=== PATIENT | male | born 1935 | race Caucasian/White ===

== ENCOUNTER 2017-06-15 15:14 | Inpatient (IN) | payer OTHER ==
[~2017-06-15] VITALS: Ht 167.6 cm; Wt 88.9 kg
[~2017-06-15 15:14] MED LIST: ADVIN25050 INH; ALBUAER2 INH; ATOR-24 PO; CYAN10005 PO; DSWCR15 TOP; FINA5TAB PO; GLC500 PO; GLYB5TAB8 PO; LISI-725 PO; MNC50 PO; MULT-506 PO
[2017-06-15 16:47] VITALS: BP 183/93; PULSE 51; TEMP 36.4; O2SAT 98; Ht 167.6 cm; Wt 88.9 kg
--- NOTE | 2017-06-15 17:00 | NUR ---
pt arrived via ems from [facility]. applied heart monitor vss. pt currently with no complaints. admission assessment completed. heart monitor applied. code word, fall risk established. md notified of admission, med rec completed. oriented to room call garay fall risk . will await orders.
[2017-06-15] MEDS ORDERED: ATOR-26 PO (17:40)
[2017-06-15] MEDS ORDERED: LEVO75TA5 PO (17:40)
[2017-06-15] MEDS ORDERED: ASPI81TA28 PO (17:40)
[2017-06-15] MEDS ORDERED: LISI10TA PO (17:40)
[2017-06-15] MEDS ORDERED: DSWCR TOP (17:40)
[2017-06-15] MEDS ORDERED: TRMCR515 TOP (17:40)
[2017-06-15] MEDS ORDERED: FINA5TAB PO (17:40)
[2017-06-15] MEDS ORDERED: TAMS0.4C38 PO (17:40)
[2017-06-15] MEDS ORDERED: CHOL2000 PO (17:40)
[2017-06-15] MEDS ORDERED: CYAN10005 PO (17:40)
[2017-06-15] MEDS ORDERED: METF-384 PO (17:40)
[2017-06-15] MEDS ORDERED: NITROGLYCERIN 0.4 MG SL PER TAB CHARGE SL PRN (17:45)
[2017-06-15] MEDS ORDERED: GLUCAGON FOR INJ 1 MG VIAL SQ PRN (19:15)
[2017-06-15] MEDS ORDERED: DEXTROSE 50% 50 ML SYR IV PRN (19:15)
[2017-06-15] MEDS ORDERED: GLUCOSE 10 TABS/TUBE PO PRN (19:15)
[2017-06-15] MEDS ORDERED: GLUCOSE 40% GEL 15 GM TUBE PO PRN (19:15)
[2017-06-15 19:16] LABS: HEMATOCRIT 33.8 % (42-52); HEMOGLOBIN 11.2 g/dL (14.0-18.0); MEAN CELL VOLUME 92.9 fL (80-100); MEAN CORPUSCULAR HEMOGLOBIN 30.8 pg (25-34); MEAN CORPUSCULAR HGB CONC 33.1 g/dl (32-36); MEAN PLATELET VOLUME 10.9 fL (7.4-10.4); PLATELET COUNT 229 K/uL (130-400); RED CELL DISTRIBUTION WIDTH SD 51.1 fL (36.4-46.3)
[2017-06-15 19:33] LABS: BLOOD UREA NITROGEN 23 mg/dl (7-18); CARBON DIOXIDE 24 mmol/L (21-32); GLUCOSE 106 mg/dl (70-99); POTASSIUM 4.3 mmol/L (3.5-5.1); SODIUM 139 mmol/L (136-145)
[2017-06-15 19:38] LABS: CKMB 2.4 ng/ml (0.5-3.6)
--- NOTE | 2017-06-15 19:40 | NUR ---
spoke with patient regarding code status - pt does not want cpr or intubation. patient is agreeable to being defibrillated, and externally paced.
--- NOTE | 2017-06-15 19:48 | NUR ---
pt reassessed. heart rate 30's-40's asymptomatic. pacer pads in place. call garay in reach will cont to monitor.
[2017-06-15 19:56] VITALS: BP 154/78; PULSE 49; TEMP 36.9; O2SAT 91
[2017-06-15] MEDS: INSULIN ASPART 100 UNITS/ML 3 ML PEN SC SCH (20:49)
[2017-06-15] MEDS ORDERED: MAGNESIUM SULFATE 1GM / D5W 1 GM in PREMIXED IN D5W 100 ML IV ONE (21:45)
--- NOTE | 2017-06-15 21:46 | History and Physical ---
History & Physical Date & Time of Service: Jun 15, 2017 at 19:07 Chief Complaint: Complete Heart Block - Pacemaker Placement [place] Primary Care Physician: No Doctor, Assigned History of Present Illness Source: patient, clinic records, hospital records Pt is 81 y/o M with PMH DM II, HTN, dyslipidemia, melanoma with yelena to lymph nodes to right upper chest s/p chemo in remission past 6 years presented for direct admission from [facility] ER with complete heart block. Planned pacemaker placement tomorrow by Dr Ramirez. Pt reports past 2-3 days with aching/dull anterior chest pain with associated SOB, worse with walking. Denies any current CP or SOB. Reports hx edema feet bilaterally at end of day and resolves by morning for "awhile", denies any increased LE edema. In [facility] EKG: rate 45 with complete heart block, RBBB. Pt given 324mg ASA. CXR: mild increased interstitial markings lung arias without consolidation or effusion. WBC: 8, ProBNP: 4457, TSH: 2.77. Negative influenza swab. Denies fever/chills, diaphoresis, N/V/D/C, DORMAN, dizziness, syncope, vision changes, neck pain, orthopnea, palpitations, hemoptysis, cough, sore throat, choking, otalgia, rhinorrhea, abdominal pain, paresthesias, extremity weakness, rashes, urinary symptoms. Past Medical/Surgical History Medical Problems: (1) BPH (benign prostatic hyperplasia) Status: Chronic (2) DM type 2 (diabetes mellitus, type 2) Status: Chronic (3) HTN (hypertension) Status: Chronic (4) Hyperlipemia Status: Chronic (5) Hypothyroidism Status: Chronic (6) Melanoma Permanent Comment: hx melanoma with yelena to lymph nodes right upper chest. chemo. Dr Hernandez. In remission past 6 years Status: Chronic (7) Pernicious anemia Status: Chronic (8) Rosacea Status: Chronic Surgical Problems: (1) History of arthroplasty of left knee Status: Resolved (2) History of lymph node dissection of right axilla Permanent Comment: 2009 - right axillary node dissection- Dr De Jesus Status: Resolved (3) Hx of laminectomy Permanent Comment: 2007 - laminotomy decompression nerve root lumbar [place] [facility] [place]: Resolved (4) Hx of rotator cuff surgery Permanent Comment: 1998- Left shoulder Status: Resolved Family History Diabetes mellitus Hypertension Social History Smoking Status: Former Smoker (quit 1957, smoked 2ppd x 5 years) Smokeless Tobacco Use: No Alcohol Use: none (previous user, Quit 1981) Drug Use: none Immunizations History of Influenza Vaccine: Yes Influenza Vaccine Date: Mar 21, 2012 History of Tetanus Vaccine?: Yes History of Pneumococcal: Yes Pneumococcal Date: Mar 21, 2012 History of Hepatitis B Vaccine: No Allergies Coded Allergies: Iodinated Contrast Media (Verified Adverse Reaction, Intermediate, SHAKING /HYPOTHERMIA/HYPOTENSION, 11/01/09) Aspirin (Verified Adverse Reaction, Mild, TINNITUS, 01/02/10) Bupivacaine (Verified Adverse Reaction, Unknown, ?EPIDURAL-SEIZURE, ) Fentanyl (Verified Adverse Reaction, Unknown, ?EPIDURAL-SEIZURE, 01/02/10) Home Medications Scheduled Aspirin (Aspirin Ec), 81 MG PO DAILY Atorvastatin (Lipitor), 80 MG PO DAILY Cholecalciferol (Vitamin D3), 1 CAP PO DAILY Cyanocobalamin (Vitamin B-12), 1,000 MCG PO DAILY Finasteride (Proscar), 1 TAB PO DAILY Levothyroxine Sodium (Levothyroxine Sodium), 1 TAB PO DAILY Metformin Hcl (Glucophage), 1,000 MG PO BID Tamsulosin Hcl (Flomax), 1 CAP PO DAILY Triamcinolone Acet (Triamcinolone Acetonide), 1 APPLN TOP BID Scheduled PRN Desonide 0.05% (Desowen 0.05%), 1 APPLN TOP BID PRN for rash Miscellaneous Medications Lisinopril (Prinivil), 10 MG PO Review of Systems Constitutional: + problem reported, No fever, No chills, No sweats, No weight loss Eyes: No worsening of vision, No eye pain, No redness, No diplopia ENT: No unusual epistaxis, No nasal symptoms, No sore throat, No trouble swallowing Respiratory: + shortness of breath (see HPI), No cough, No sputum, No wheezing Cardiovascular: + problem reported (see HPI), No orthopnea, No PND Abdomen: No pain, No nausea, No vomiting, No diarrhea, No constipation Musculoskeletal: No joint pain, No muscle pain Genitourinary - Male: No hematuria, No dysuria, No urinary frequency, No urinary urgency Neurologic: No weakness, No numbness/tingling, No vertigo Psychiatric: No depression symptoms, No anxiety Endocrine: No excessive thirst, No excessive urination Hematologic / Lymphatic: No abnormal bleeding/bruising, No clotting problems Integumentary: No itch Physical Exam Vital Signs Date Time Temp Pulse Resp B/P (MAP) Pulse Ox O2 Delivery O2 Flow Rate FiO2 06/15/17 16:47 36.4 51 16 183/93 98 Room Air General Appearance: WD/WN, no apparent distress Head: normocephalic, atraumatic Eyes: normal inspection, PERRL, EOMI, sclerae normal ENT: hearing grossly normal, pharynx normal, + pertinent finding (moist mucous membranes) Neck: supple, no JVD, trachea midline Respiratory/Chest: chest non-tender, no respiratory distress, no accessory muscle use, + pertinent finding (mild rales noted bilateral bases) Cardiovascular: normal peripheral pulses, + bradycardia (+murmur) Abdomen/GI: normal bowel sounds, non tender, soft Extremities/Musculoskelatal: no calf tenderness, normal capillary refill, no pedal edema, normal range of motion, non-tender Neurologic/Psych: alert, normal mood/affect, oriented x 3 Skin: normal color, warm/dry Diagnostics Laboratory Results Medical Problems: (1) BPH (benign prostatic hyperplasia) Status: Chronic (2) DM type 2 (diabetes mellitus, type 2) Status: Chronic (3) HTN (hypertension) Status: Chronic (4) Hyperlipemia Status: Chronic (5) Hypothyroidism Status: Chronic (6) Melanoma Permanent Comment: hx melanoma with yelena to lymph nodes right upper chest. chemo. Dr Hernandez. In remission past 6 years Status: Chronic (7) Pernicious anemia Status: Chronic (8) Rosacea Status: Chronic Surgical Problems: (1) History of arthroplasty of left knee Status: Resolved (2) History of lymph node dissection of right axilla Permanent Comment: 2009 - right axillary node dissection- Dr De Jesus Status: Resolved (3) Hx of laminectomy Permanent Comment: 2007 - laminotomy decompression nerve root lumbar [place] [facility] [place]: Resolved (4) Hx of rotator cuff surgery Permanent Comment: 1998- Left shoulder Status: Resolved EKG EKG: ro, rate 49, heart block, RBBB Impression Assessment and Plan COMPLETE HEART BLOCK/CP/SOB Pt with hx CP, SOB for 2 days. No current CP/SOB. EKG: bradycardia rate 49, complete heart block. Initial troponin negative. CXR done at [facility] no infiltrate or consolidation. -trend cardiac enzymes -cardiology & EP consulted, pt planned for pacemaker placement tomorrow -NPO after midnight -echo -external bedside pacer pads to be in place -repeat EKG in am -repeat cbc, prp in am HTN initially hypertensive, however now stable -continue to monitor -continue lisinopril HYPOMAGNESIA Today Ma.5 -replace -repeat magnesium lab in am DM II A1C on 04/23/17 was 6.6 -hold metformin -NovoLog sliding scale per protocol DYSLIPIDEMIA Lipids on 04/23/17 Total: 117, HDL: 39, LDL: 53, Triglycerides: 123 -continue atorvastatin HYPOTHYROIDISM TSH: 2.77 today at [facility] -continue levothyroxine BPH -continue flomax ANEMIA hx pernicious anemia. Hgb: 11.2, baseline: 12.3. No active bleeding -repeat cbc in am DVT PROPHYLAXIS -SCDs DISPOSITION -admit tele -No compressions, No mechanical ventilation, Yes to cardioversion as per discussion with pt -Follows with Dr Bateman for routine care Pt was seen with Dr Bentley. See addendum Attending Addendum: The patient was seen and examined Admitted with Exertional SOB and CP and noted to have CHB with rate ~upper 40s O/H No acute distress Chest-decreased breath sound bilaterally Haert-regular Abdomen-benign Extremities-trace edema bilaterally Labs and imaging studies were reviewed Agree with the assessment and plan. Dr Nigel bentley Level of Care Telemetry Advanced Directives Existing Living Will: No Existing Power of [employer] Worker: No VTE Prophylaxis VTE Risk Assessment Done? Y/N: Yes Risk Level: Moderate Given or contraindicated: SCD's Additional Copies To Taj Bateman M.D.
[2017-06-15 23:44] VITALS: BP 163/75; PULSE 61; TEMP 36.6; O2SAT 97
[2017-06-16] VITALS (14 sets, daily range): BP systolic 110–211; BP diastolic 56–110; PULSE 40–95; TEMP 36.3–36.6; O2SAT 95–98
--- NOTE | 2017-06-16 | NUR ---
A: PT is alert and oriented x4, SB with 3 IVCD on explosive specialist, denies chest pain or SOB, VSS, NPO pending pacer placement in AM, pacer pads on PT with monitor at bed side, SL, assessment compleat.
[2017-06-16 01:05] LABS: CKMB 2.2 ng/ml (0.5-3.6)
[2017-06-16] MEDS: ACETAMINOPHEN 325 MG TAB PO PRN ×2 (01:54→11:10)
--- NOTE | 2017-06-16 04:00 | NUR ---
A: PT is alert and oriented x4, SB with 3 IVCD on site monitor, denies chest pain or SOB, VSS, head pain relived by PO pain medication, assessment compleat.
[2017-06-16] MEDS: LEVOTHYROXINE 75 MCG TAB PO SCH (05:17)
[2017-06-16 06:50] LABS: HEMATOCRIT 30.4 % (42-52); HEMOGLOBIN 10.4 g/dL (14.0-18.0); MEAN CORPUSCULAR HEMOGLOBIN 31.1 pg (25-34); MEAN CORPUSCULAR HGB CONC 34.2 g/dl (32-36); MEAN PLATELET VOLUME 10.8 fL (7.4-10.4); PLATELET COUNT 199 K/uL (130-400); RED CELL DISTRIBUTION WIDTH CV 14.9 % (11.5-14.5); RED CELL DISTRIBUTION WIDTH SD 49.8 fL (36.4-46.3); WHITE BLOOD COUNT 6.32 K/uL (4.8-10.8)
[2017-06-16] MEDS ORDERED: PERFLUTREN LIPID MICROSPHERE (DEFINITY) IV ONE (06:57)
[2017-06-16 07:23] LABS: CALCIUM 8.5 mg/dl (8.5-10.1); CREATININE 1.31 mg/dl (0.60-1.40); POTASSIUM 4.1 mmol/L (3.5-5.1)
--- NOTE | 2017-06-16 08:00 | NUR ---
A/ID NOTE: PATIENT FULLY ASSESSED SEE EMR, VSS. PATIENT NPO FOR PACE PLACEMENT LATER TODAY. PATIENT UP INDEPENDENT IN ROOM. UNCERTAIN OF DISCHARGE DATE AT THIS TIME.
[2017-06-16] MEDS: INSULIN ASPART 100 UNITS/ML 3 ML PEN SC SCH ×4 (08:13→21:00)
--- NOTE | 2017-06-16 10:00 | NUR ---
Case Management: Pt. identified on screening tool as >80 and lives alone. He lives alone in a one story home and is independent at baseline. He states that he drives "occasionally". He has a cane if needed. He denies any needs at d/c and plans to return home at d/c. PT/OT evals would prove beneficial for planning. Case management to follow.
--- NOTE | 2017-06-16 10:57 | Cardiology Consultation ---
Cardiology Consultation Date of Consultation: Jun 16, 2017 Requesting Physician: Sheba Attending Beam Dyer: Tomasa (Walter Saxena PA-C) History of Present Illness Mr. Marlo Ziegler is a 81 year old male who is being seen at the request of Ms. Kathy Scruggs PA-C and Dr. Teresa Ordoñez M.D. Reason for consultation is complete heart block. Mr. Ziegler was in his usual state health until Wednesday when he developed intermittent chest discomfort and shortness of breath and then near syncope on Wednesday. No true syncope. He initially presented to an acute care clinic in [place] and was referred to the ER where an EKG revealed sinus rhythm with complete heart block and ventricular escape rhythm. Mr. Ziegler requested transfer to [facility] where he was admitted pending further evaluation and treatment. TSH was normal yesterday, 2.77 uIu/mL. Lyme screen was negative. He is not prescribed AV brandon suzy therapy. Telemetry reveals sinus rhythm with complete heart block. Blood pressure was elevated on presentation. He has been hemodynamically stable thus far. Complaints include a headache aided by PRN Tylenol. No current chest pain. No currently dyspnea. No current cough, orthopnea or PND. Edema that accumulates throughout the day and resolves overnight. No fevers or chills. (Walter Saxena PA-C) Past Medical/Surgical History Problem List: Past Medical and Surgical History: Nonobstructive coronary artery disease Type II diabetes mellitus Hypertension Dyslipidemia History of malignant melanoma with metastasis to lymph nodes in the right upper chest, s/p chemotherapy. Pernicious anemia Hypothyroidism BPH Rosacea Vitamin D deficiency Insomnia Polyneuropathy History of arthroplasty of left knee History of lymph node dissection of right axilla Bilateral carpal tunnel surgery Hx of lumbar laminectomy Hx of left rotator cuff surgery Colonoscopy with polypectomy Umbilical hernia repair Cataract extraction Removal of a pilonidal cyst Trigger finger release. (Walter Saxena PA-C) Family History Family History: Mother with premature CAD, passing at 56. Multiple children with CAD in their 40's or 50's. (Walter Saxena PA-C) Diabetes mellitus Hypertension (Ney Randolph, ) Social History Social History: Reformed smoker, quit in 1958 after accumulating approximately 30 pack years of smoking. Prior heavy drinker in the remote past. No illegal drug use. . Eight children. Retired from [employer]. (Walter Saxena PA-C) Review Of Systems General: No fevers or chills. HEENT: + Headache. No head trauma. Cardiovascular: See above. Pulmonary: No current cough. No hemoptysis. Gastrointestinal: No nausea, vomiting, or diarrhea. Skin: No rash. Musculoskeletal: See above. Neurological: Denies history of TIA, CVA, or seizures Complete review of systems is as stated above, negative, or noncontributory. (Walter Saxena PA-C) Allergies Coded Allergies: Iodinated Contrast Media (Verified Adverse Reaction, Intermediate, SHAKING /HYPOTHERMIA/HYPOTENSION, 11/01/09) Aspirin (Verified Adverse Reaction, Mild, TINNITUS, 01/02/10) Bupivacaine (Verified Adverse Reaction, Unknown, ?EPIDURAL-SEIZURE, ) Fentanyl (Verified Adverse Reaction, Unknown, ?EPIDURAL-SEIZURE, 01/02/10) Medications Reported Home Medications Medications Dose Route/Sig Max Daily Dose Days Date Category Glucophage (Metformin Hcl) 1,000 Mg Tab 1,000 Mg PO BID 06/15/17 Reported Triamcinolone Acetonide (Triamcinolone Acet) 45 Appln/15 Gm Cr 1 Appln TOP BID 30 06/15/17 Reported Flomax (Tamsulosin Hcl) 0.4 Mg Cap 1 Cap PO DAILY 30 06/15/17 Reported Prinivil (Lisinopril) 10 Mg Tab 10 Mg PO 06/15/17 Reported Levothyroxine Sodium 75 Mcg Tab 1 Tab PO DAILY 30 06/15/17 Reported Proscar (Finasteride) 5 Mg Tab 1 Tab PO DAILY 90 06/15/17 Reported Desowen 0.05% (Desonide) 60 Gm Cr 1 Appln TOP BID PRN 14 06/15/17 Reported Vitamin B-12 (Cyanocobalamin) 1,000 Mcg Tab 1,000 Mcg PO DAILY 06/15/17 Reported Vitamin D3 (Cholecalciferol) 2,000 Unit Cap 1 Cap PO DAILY 30 06/15/17 Reported Lipitor (Atorvastatin Calcium) 80 Mg Tab 80 Mg PO DAILY 06/15/17 Reported Aspirin Ec (Aspirin) 81 Mg Tab 81 Mg PO DAILY 06/15/17 Reported (Walter Saxena PA-C) Physical Exam Vital Signs (Last 8hrs): Last 8 Hrs Date Time Temp Pulse Resp B/P (MAP) Pulse Ox O2 Delivery O2 Flow Rate FiO2 06/16/17 08:00 Room Air 06/16/17 07:30 36.4 43 18 110/56 (74) 97 Room Air 06/16/17 04:00 Room Air 06/16/17 03:23 36.6 49 20 111/56 (74) 98 Room Air General Appearance: Alert and Oriented x3. NAD. HEENT: Normocephalic Atraumatic. PER. Conjunctiva and sclera clear Neck: Supple. No carotid bruits. Normal JVP. No HJD. Respiratory: Breath sounds clear to auscultation bilaterally. No w/r/r. Cardiovascular: Bradycardic at 40 bpm. Soft systolic murmur. No rub. PMI is nondisplaced. Abdomen: +BS. Soft. Nontender. Extremities: No edema. No clubbing. No cyanosis. Distal pulses 2/4 bilaterally. Neuro: No focal deficits. Psychiatric: Normal affect. (Walter Saxena PA-C) Data Last 24 Hours Test 06/15/17 19:00 06/15/17 20:11 06/16/17 00:28 06/16/17 06:08 White Blood Count 7.80 K/uL Red Blood Count 3.64 M/uL Hemoglobin 11.2 g/dL Hematocrit 33.8 % Mean Corpuscular Volume 92.9 fL Mean Corpuscular Hemoglobin 30.8 pg Mean Corpuscular Hemoglobin Concent 33.1 g/dl RDW Standard Deviation 51.1 fL RDW Coefficient of Variation 15.0 % Platelet Count 229 K/uL Mean Platelet Volume 10.9 fL Sodium Level 139 mmol/L Potassium Level 4.3 mmol/L Chloride Level 105 mmol/L Carbon Dioxide Level 24 mmol/L Anion Gap 10.0 mmol/L Blood Urea Nitrogen 23 mg/dl Creatinine 1.40 mg/dl Est Creatinine Clear Calc Drug Dose 42.4 ml/min Estimated GFR () 53.5 Estimated GFR (Non- 46.1 BUN/Creatinine Ratio 16.6 Random Glucose 106 mg/dl Calcium Level 9.0 mg/dl Magnesium Level 1.5 mg/dl Total Creatine Kinase 64 U/L 61 U/L Creatine Kinase MB 2.4 ng/ml 2.2 ng/ml Creatine Kinase MB Ratio 3.8 3.6 Troponin I < 0.015 ng/ml < 0.015 ng/ml Bedside Glucose 113 mg/dl 94 mg/dl Test 06/16/17 06:25 White Blood Count 6.32 K/uL Red Blood Count 3.34 M/uL Hemoglobin 10.4 g/dL Hematocrit 30.4 % Mean Corpuscular Volume 91.0 fL Mean Corpuscular Hemoglobin 31.1 pg Mean Corpuscular Hemoglobin Concent 34.2 g/dl RDW Standard Deviation 49.8 fL RDW Coefficient of Variation 14.9 % Platelet Count 199 K/uL Mean Platelet Volume 10.8 fL Sodium Level 140 mmol/L Potassium Level 4.1 mmol/L Chloride Level 108 mmol/L Carbon Dioxide Level 25 mmol/L Anion Gap 7.0 mmol/L Blood Urea Nitrogen 22 mg/dl Creatinine 1.31 mg/dl Est Creatinine Clear Calc Drug Dose 42.9 ml/min Estimated GFR () 57.9 Estimated GFR (Non- 50.0 BUN/Creatinine Ratio 16.4 Random Glucose 89 mg/dl Calcium Level 8.5 mg/dl Magnesium Level 1.6 mg/dl November 29, 2008 Coronary arteriography ([facility] [place], Dr. Bridges): A. LM: Normal. B. LAD: 30% proximal stenosis, and what appears to be an old ulcerated lesion, which had sealed over. The rest of the vessel has no significant lesions. C. LCX: Luminal irregularities but no lesions over 10-20%. It appears to be dominant. D. 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 June 15, 2017 CXR ([facility], Dr. Chung): Mild increased interstitial markings in the lung arias without consolidation or effusion. In this patient who has finished chemotherapy for melanoma, I question whether the increased interstitial markings could be a sequela of the chemotherapeutic agents. Normal cardiac size. EKG: see above. Telemetry reviewed: Sinus with complete heart block with ventricular escape beats at 40 bpm. (Walter Saxena PA-C) Assessment & Plan Symptomatic complete heart block without an identified reversible cause. History of nonobstructive coronary artery disease by November 2008 diagnostic cardiac catheterization at [facility] RECOMMENDATIONS/PLAN: Resting echocardiography Permanent pacemaker implantation Outpatient Lexiscan nuclear stress testing to assess for ischemia. Further recommendations pending the above, evaluation by Dr. Randolph, and his ongoing hospitalization. (Walter Saxena PA-C) CARDIOLOGY ATTENDING ADDENDUM: The patient was seen and personally examined. Agree with Walter Saxena PA-C's findings and plans as documented above. Patient already in lab for pacemaker. (Ney Randolph, DO)
--- NOTE | 2017-06-16 12:00 | NUR ---
A NOTE; EP LAB STAFF TOOK PATIENT DOWN FOR PROCEDURE. STAFF WAS MADE AWARE OF CONSTRAST ALLERGY.
[2017-06-16] MEDS ORDERED: MIDAZOLAM HCL 5 MG/ML 1 ML VIAL ONE (12:07)
[2017-06-16] MEDS ORDERED: FENTANYL CITRATE INJ 50 MCG/1 ML 2 ML VIAL ONE (12:07)
[2017-06-16] MEDS ORDERED: LIDOCAINE HCL 1% 20 ML VIAL ONE ×2 (12:07→12:13)
[2017-06-16] MEDS ORDERED: BUPIVACAINE 0.5 % 5 MG/1 ML MPF 30ML VIAL ONE (12:07)
[2017-06-16] MEDS ORDERED: BACITRACIN 50000 UNIT VIAL ONE (12:08)
[2017-06-16] MEDS ORDERED: DiphenhydrAMINE HCL 50 MG/ML VIAL ONE (12:08)
[2017-06-16] MEDS ORDERED: METHYLPREDNISOLONE 125 MG VIAL ONE (12:08)
[2017-06-16] MEDS ORDERED: RANITIDINE HCL 25 MG/ML INJ ONE (12:09)
[2017-06-16] MEDS ORDERED: CEFAZOLIN SOD 1 GM VIAL ONE (12:13)
--- NOTE | 2017-06-16 12:14 | History & Physical Bridge Note ---
H&P Re-Evaluation Bridge Note: I have examined the patient, reviewed the History & Physical and in the interval since the performance of the History & Physical I have noted the following changes of clinical significance: No changes noted
--- NOTE | 2017-06-16 12:16 | Pre Sedation Assessment ---
Pre Sedation Assessment General Date of Sedation: Jun 16, 2017. Vital Signs Past 12 Hours Date Time Temp Pulse Resp B/P (MAP) Pulse Ox O2 Delivery O2 Flow Rate FiO2 06/16/17 12:00 Room Air 06/16/17 11:02 36.5 40 20 153/71 (98) 97 Room Air 06/16/17 08:00 Room Air 06/16/17 07:30 36.4 43 18 110/56 (74) 97 Room Air 06/16/17 04:00 Room Air 06/16/17 03:23 36.6 49 20 111/56 (74) 98 Room Air 06/16/17 01:56 53 152/74 (100) Review Cardiovascular: + bradycardia Lungs: lungs clear Pre-Sedation Airway Assessment Smoking Status: Former Smoker Hx of Sleep Apnea: No Hx of difficult intubation: No Short Thick Neck: No Oral Cavity: Dental Abnormalities Mallampati Classification: Class II ASA Classification: Class II NPO Status Date of Last Intake of Fluids: Jun 16, 2017 Time of Last Intake of Fluids: 0000 Date of Last Intake of Solids: Jun 15, 2017 Time of Last Intake of Solids: 1900 Procedure Planning Contraindications for Sedation: None Current Medications Reviewed: Yes Notes The planned sedation has been discussed with the patient. Informed Consent was obtained. I have identified the patient, determined the appropriateness of sedation and have assessed the patient immediately prior to the procedure. All medicine(s) and interventions are by my order.
--- NOTE | 2017-06-16 13:32 | ECHOCARDIOGRAM REPORT ---
*NOTICE TO RECEIVING [employer]Y This information is strictly Confidential and protected under [place] law. [place] law prohibits you from making any further disclosure of this information unless further disclosure is expressly permitted by the written consent of the person to whom it pertains or is authorized by law. A general authorization for the release of medical or other information is not sufficient for this purpose. Hospital accepts no responsibility if the information is made available to any other person, INCLUDING THE PATIENT. Interpretation Summary * Name: BOZENA ADKINS Study Date: 06/16/2017 06:20 AM BP: 111/56 mmHg * Patient Location: C.2T\S\S240\S\1 HR: 49 * : 1935 (M/d/yyyy) Gender: Male Height: 66 in * Age: 81 yrs Ethnicity: CA Weight: 202 lb * Ordering Physician: Kathy Scruggs * Referring Physician: No Doctor, Assigned * Performed By: Miguelina Jimenes RDCS * * Reason For Study: Chest pain * BSA: 2.0 m2 * -- Conclusions -- * Aortic valve sclerosis mild, without significant aortic valvular stenosis. * The left ventricle is normal in size. * Left ventricular systolic function is normal. * Ejection Fraction = 60-65%. * The right ventricular systolic function is normal. * The left atrial size is normal. * Right atrial size is normal. * No significacant valvular pathology. Procedure Details * A complete two-dimensional transthoracic echocardiogram was performed (2D, M-mode, Doppler and color flow Doppler). * A contrast injection of Definity was performed to improve assessment of LV function. * Contrast was injected into an intravenous site in the left arm. * One vial of Definity ultrasound contrast was diluted in normal saline to a total volume of 10 ml. A total of '2' ml of solution was administered during imaging. * Lot # [id number] of Definity utilized for procedure. * Expiration date 1 AUG 09. * The attending nurse who injected the contrast agent was Tracy Hernandez RN. Left Ventricle * The left ventricle is normal in size. * There is normal left ventricular wall thickness. * Ejection Fraction = 60-65%. * Left ventricular systolic function is normal. Right Ventricle * The right ventricle is normal size. * The right ventricular systolic function is normal. Atria * The left atrial size is normal. * Right atrial size is normal. * The interatrial septum is intact with no evidence for an atrial septal defect. Mitral Valve * The mitral valve anatomy is normal. * There is mild mitral regurgitation. Tricuspid Valve * The tricuspid valve is not well visualized, but is grossly normal. * Significant tricuspid regurgitation is absent. Aortic Valve * Aortic valve sclerosis mild, without significant aortic valvular stenosis. * There is no significant aortic regurgitation. Pulmonic Valve * The pulmonic valve is not well visualized. Great Vessels * The aortic root and proximal ascending aorta are normal sized. Pericardium/Pleural * There is no pericardial effusion. MMode 2D Measurements and Calculations IVSd 1.3 cm LVIDd 3.6 cm LVIDs 2.5 cm LVPWd 1.4 cm IVS/LVPW 0.91 FS 29.4 % EDV(Teich) 53.6 ml ESV(Teich) 22.9 ml EF(Teich) 57.2 % EDV(cubed) 45.7 ml ESV(cubed) 16.1 ml EF(cubed) 64.7 % LV mass(C)d 167.3 grams LV mass(C)dI 83.3 grams/m\S\2 SV(Teich) 30.7 ml SI(Teich) 15.3 ml/m\S\2 SV(cubed) 29.6 ml SI(cubed) 14.7 ml/m\S\2 Ao root diam 3.3 cm Ao root area 8.7 cm\S\2 ACS 1.7 cm LA dimension 4.1 cm asc Aorta Diam 4.3 cm LA/Ao 1.2 LVOT diam 2.0 cm LVOT area 3.0 cm\S\2 LVAd ap4 32.3 cm\S\2 LVLd ap4 7.9 cm EDV(MOD-sp4) 107.3 ml EDV(sp4-el) 111.9 ml LVAs ap4 18.1 cm\S\2 LVLs ap4 6.7 cm ESV(MOD-sp4) 39.5 ml ESV(sp4-el) 41.7 ml EF(MOD-sp4) 63.2 % EF(sp4-el) 62.7 % LVAd ap2 32.6 cm\S\2 LVLd ap2 7.6 cm EDV(MOD-sp2) 115.6 ml EDV(sp2-el) 119.0 ml LVAs ap2 17.8 cm\S\2 LVLs ap2 6.1 cm ESV(MOD-sp2) 40.8 ml ESV(sp2-el) 43.8 ml EF(MOD-sp2) 64.7 % EF(sp2-el) 63.2 % LVLd %diff -4.49 % EDV(MOD-bp) 112.4 ml LVLs %diff -8.97 % ESV(MOD-bp) 40.7 ml EF(MOD-bp) 63.8 % SV(MOD-sp4) 67.8 ml SI(MOD-sp4) 33.8 ml/m\S\2 SV(MOD-sp2) 74.8 ml SI(MOD-sp2) 37.3 ml/m\S\2 SV(MOD-bp) 71.6 ml SI(MOD-bp) 35.7 ml/m\S\2 SV(sp4-el) 70.2 ml SI(sp4-el) 34.9 ml/m\S\2 SV(sp2-el) 75.1 ml SI(sp2-el) 37.4 ml/m\S\2 Doppler Measurements and Calculations MV E max sara 106.2 cm/sec MV A max sara 71.3 cm/sec MV E/A 1.5 MV dec time 0.22 sec Ao V2 max 128.0 cm/sec Ao max PG 6.6 mmHg Ao max PG (full) 0.76 mmHg MALLORY(V,A) 2.8 cm\S\2 MALLORY(V,D) 2.8 cm\S\2 LV V1 max PG 5.8 mmHg LV V1 max 120.3 cm/sec PA V2 max 103.2 cm/sec PA max PG 4.3 mmHg PA acc slope 596.9 cm/sec\S\2 PA acc time 0.14 sec TR max sara 268.8 cm/sec PA pr(Accel) 17.2 mmHg
--- NOTE | 2017-06-16 13:35 | [facility] Post Operative Brief Note ---
Immediate Operative Summary Operative Date Jun 16, 2017. Pre-Operative Diagnosis chb Post-Operative Diagnosis same Procedure(s) Performed dual chamber pacemaker rate responsive with peripheral venogram Surgeon catherine washington Event Decorator Surgeon(s) none Estimated Blood Loss <10cc Findings see official report Fluids (cc crystalloids) 100cc Specimens none Drains none Anesthesia 1mg versed, 50mg benadryl, 50mg zantac, 125mg solumedrol Complication(s) None Disposition PCU
[2017-06-16] MEDS ORDERED: OXYCODONE/ACETAMINOPHEN 5-325 TAB PO PRN (13:45)
[2017-06-16] MEDS ORDERED: ACETAMINOPHEN 325 MG TAB PO PRN (13:45)
--- NOTE | 2017-06-16 14:00 | NUR ---
A NOTE: PATIENT BACK FROM EP LAB. BLOOD PRESSURE HIGH AT 210/100 GAVE BLOOD PRESSURE MEDS THAT PATIENT REFUSED TO TAKE THIS MORNING.
[2017-06-16] MEDS: LISINOPRIL 10 MG TAB PO SCH (14:02)
[2017-06-16] MEDS: TAMSULOSIN HCL 0.4 MG CAP PO SCH (14:03)
[2017-06-16] MEDS: FINASTERIDE 5 MG TAB PO SCH (14:03)
[2017-06-16] MEDS: CHOLECALCIFEROL 1000 INTER.UNIT TAB PO SCH (14:03)
[2017-06-16] MEDS: CYANOCOBALAMIN 500 MCG TAB (VIT B-12) PO SCH (14:03)
[2017-06-16] MEDS: ASPIRIN 81 MG ECTAB PO SCH (14:03)
[2017-06-16] MEDS: ATORVASTATIN 40 MG TAB PO SCH (14:03)
[2017-06-16] MEDS ORDERED: HydrALAZINE HCL 20 MG/ML VIAL ONE (14:39)
[2017-06-16] MEDS ORDERED: NURSING DECISION MEDICATION ORDER SCH (14:45)
[2017-06-16] MEDS ORDERED: HydrALAZINE HCL 20 MG/ML VIAL IV. STA (14:50)
--- NOTE | 2017-06-16 16:00 | NUR ---
Pt A&O. Denies pain. VSS. Monitor showing paced rhythm left shoulder area incision with dermabond dry and intact, no redness, swelling or drainage. See EMR for full assessment.
--- NOTE | 2017-06-16 16:22 | Post Sedation Assessment ---
Post Sedation Assessment General Date of Sedation Jun 16, 2017. Vital Signs: Vital Signs Past 12 Hours Date Time Temp Pulse Resp B/P (MAP) Pulse Ox O2 Delivery O2 Flow Rate FiO2 06/16/17 16:00 36.3 84 20 158/80 (106) 97 Room Air 06/16/17 15:30 36.3 85 20 196/80 (118) 97 Room Air 06/16/17 15:00 36.3 78 20 175/77 (109) 97 Room Air 06/16/17 14:30 36.4 70 20 191/110 (137) 97 Room Air 06/16/17 14:15 36.4 70 20 211/109 (143) 97 Room Air 06/16/17 14:00 36.4 70 20 210/100 (136) 97 Room Air 06/16/17 13:45 36.4 69 20 208/105 (139) 97 Room Air 06/16/17 13:35 60 16 180/96 (124) 95 Room Air 06/16/17 13:30 Room Air 06/16/17 13:25 Room Air 06/16/17 13:20 60 16 172/91 (118) 96 Room Air 06/16/17 12:00 Room Air 06/16/17 11:02 36.5 40 20 153/71 (98) 97 Room Air 06/16/17 08:00 Room Air 06/16/17 07:30 36.4 43 18 110/56 (74) 97 Room Air Post Procedure Recovery Score Activity: (2) Moves 4 extremities * Respiration: (2) Deep breath/cough Circulation: (2) +/-20% PreAnes Value Consciousness: (2) Fully Awake Oxygen Saturation: (2) > 92% On Room Air Post Anesthesia Score: 10 Discharge Sedation Level of Care: Fast Track Phase II Post Sedation Plan On clinical assessment, the patient appears to have tolerated the sedation without complications. Patient is recovering as anticipated. Patient will continue to be monitored by nursing and may be discharged when sedation discharge criteria are met per below protocol. Upon Completions of procedure and additional 15 minutes continue every 5 minute vital signs and the P.A.R. score; then discharge to a Phase I or Fast Track to Phase II per the following guidelines: * Discharge Patient to appropriate Phase II area if PAR is 8 or greater or return to pre- procedure baseline. The post - procedure orders will be as directed. * If PAR score is less than 8 or not return to pre-procedure baseline then patient will follow Phase I monitoring till PAR is reached for Phase II. The Phase I may be done in procedure room or may call to secure a Phase I area. * If naloxone or flumazenil are used for reversal, hold in Phase I for an additional 60 -120 minutes before discharge to Phase II. Please call the Sedation Physician to re-evaluate and complete post-note for discharge to Phase II area. Do NOT discharge from procedure sedation or Phase 1 until post- sedation evaluation note is complete by procedure /sedation MD Sedation Discharge Instructions to be given to the patient at discharge to home.
[2017-06-16] MEDS ORDERED: MAGNESIUM SULFATE 1GM / D5W 1 GM in PREMIXED IN D5W 100 ML IV STA (18:20)
--- NOTE | 2017-06-16 18:31 | Progress Note ---
Medicine Progress Note Date & Time of Visit: Jun 16, 2017 at 18:19. Subjective Patient seen after the procedure, states he feels well, denies any complaints of CP, SOB, palpitations, pain or soreness. Tolerating PO without difficulty. No overnight events noted. Patient states he has some difficulty reminding himself not to elevate his elbow above his shoulder. Objective Last 8 Hrs Date Time Temp Pulse Resp B/P (MAP) Pulse Ox O2 Delivery O2 Flow Rate FiO2 06/16/17 17:01 95 20 164/77 (106) 97 Room Air 06/16/17 16:00 36.3 84 20 158/80 (106) 97 Room Air 06/16/17 16:00 Room Air 06/16/17 15:30 36.3 85 20 196/80 (118) 97 Room Air 06/16/17 15:00 36.3 78 20 175/77 (109) 97 Room Air 06/16/17 14:30 36.4 70 20 191/110 (137) 97 Room Air 06/16/17 14:15 36.4 70 20 211/109 (143) 97 Room Air 06/16/17 14:00 36.4 70 20 210/100 (136) 97 Room Air 06/16/17 13:45 36.4 69 20 208/105 (139) 97 Room Air 06/16/17 13:35 60 16 180/96 (124) 95 Room Air 06/16/17 13:30 Room Air 06/16/17 13:25 Room Air 06/16/17 13:20 60 16 172/91 (118) 96 Room Air 06/16/17 12:00 Room Air 06/16/17 11:02 36.5 40 20 153/71 (98) 97 Room Air Physical Exam: GENERAL: Patient is in no acute distress. HEENT: No acute trauma, normocephalic, mucous membranes moist, no nasal congestion, no scleral icterus. NECK: No stridor, trachea is midline. LUNGS: Clear to auscultation bilaterally, no wheeze, no rhonchi, breath sounds equal. HEART: Without murmurs gallops or rubs, regular rate and rhythm. Left chest wall /shoulder incision site noted without drainage ABDOMEN: Soft, nontender, bowel sounds positive, no hepatosplenomegaly EXTREMITIES: No cyanosis or edema, intact range of motion of the extremities NEUROLOGIC: Oriented x 3, no acute motor or sensory deficits, no focal weakness. SKIN: No rash, no jaundice, no diaphoresis. Laboratory Results: Last 24 Hours Test 06/15/17 19:00 06/15/17 20:11 06/16/17 00:28 06/16/17 06:08 White Blood Count 7.80 K/uL Red Blood Count 3.64 M/uL Hemoglobin 11.2 g/dL Hematocrit 33.8 % Mean Corpuscular Volume 92.9 fL Mean Corpuscular Hemoglobin 30.8 pg Mean Corpuscular Hemoglobin Concent 33.1 g/dl RDW Standard Deviation 51.1 fL RDW Coefficient of Variation 15.0 % Platelet Count 229 K/uL Mean Platelet Volume 10.9 fL Sodium Level 139 mmol/L Potassium Level 4.3 mmol/L Chloride Level 105 mmol/L Carbon Dioxide Level 24 mmol/L Anion Gap 10.0 mmol/L Blood Urea Nitrogen 23 mg/dl Creatinine 1.40 mg/dl Est Creatinine Clear Calc Drug Dose 42.4 ml/min Estimated GFR () 53.5 Estimated GFR (Non- 46.1 BUN/Creatinine Ratio 16.6 Random Glucose 106 mg/dl Calcium Level 9.0 mg/dl Magnesium Level 1.5 mg/dl Total Creatine Kinase 64 U/L 61 U/L Creatine Kinase MB 2.4 ng/ml 2.2 ng/ml Creatine Kinase MB Ratio 3.8 3.6 Troponin I < 0.015 ng/ml < 0.015 ng/ml Bedside Glucose 113 mg/dl 94 mg/dl Test 06/16/17 06:25 06/16/17 11:55 06/16/17 16:01 White Blood Count 6.32 K/uL Red Blood Count 3.34 M/uL Hemoglobin 10.4 g/dL Hematocrit 30.4 % Mean Corpuscular Volume 91.0 fL Mean Corpuscular Hemoglobin 31.1 pg Mean Corpuscular Hemoglobin Concent 34.2 g/dl RDW Standard Deviation 49.8 fL RDW Coefficient of Variation 14.9 % Platelet Count 199 K/uL Mean Platelet Volume 10.8 fL Sodium Level 140 mmol/L Potassium Level 4.1 mmol/L Chloride Level 108 mmol/L Carbon Dioxide Level 25 mmol/L Anion Gap 7.0 mmol/L Blood Urea Nitrogen 22 mg/dl Creatinine 1.31 mg/dl Est Creatinine Clear Calc Drug Dose 42.9 ml/min Estimated GFR () 57.9 Estimated GFR (Non- 50.0 BUN/Creatinine Ratio 16.4 Random Glucose 89 mg/dl Calcium Level 8.5 mg/dl Magnesium Level 1.6 mg/dl Bedside Glucose 100 mg/dl 151 mg/dl Assessment & Plan CP/SOB SECONDARY TO COMPLETE HEART BLOCK: s/p dual chamber pacemaker POD#0 -presented with CP, SOB for 2 days prior to evaluation in [facility] -EKG: bradycardia, rate 49, complete heart block -CXR done at [facility]: no infiltrate or consolidation. -serial cardiac enzymes negative -Cardiology & EP cardio consulted, appreciate intervention -TTE report: * -- Conclusions -- * Aortic valve sclerosis mild, without significant aortic valvular stenosis. * The left ventricle is normal in size. * Left ventricular systolic function is normal. * Ejection Fraction = 60-65%. * The right ventricular systolic function is normal. * The left atrial size is normal. * Right atrial size is normal. * No significacant valvular pathology. -repeat EKG in am HTN: -was hypertensive post pacemaker placement due to not taking AM meds, now improving -monitor -continue lisinopril -metoprolol added per Cardio HYPOMAGNESEMIA: -1.5-->1.6 -replete and recheck DM TYPE II: -HbA1C from 04/23/17 was 6.6% -hold metformin while hospitalized -NovoLog sliding scale per protocol DYSLIPIDEMIA: -recent lipids from 04/23/17 Total: 117, HDL: 39, LDL: 53, Triglycerides: 123 -continue atorvastatin HYPOTHYROIDISM: -TSH: 2.77 at [facility] -continue levothyroxine BPH: -continue flomax ANEMIA: -has chronic hx of pernicious anemia -Hgb: 11.2-->10.4 -last baseline: 12.3 -no active bleeding noted -repeat cbc in AM Current Inpatient Medications: Current Inpatient Medications Medications (Trade) Dose Ordered Sig/Tremaine Route Start Time Stop Time Status Last Admin Dose Admin Acetaminophen (Tylenol Tab) 650 mg Q4H PRN PO 06/15/17 17:45 07/15/17 17:44 06/16/17 11:10 650 MG Nitroglycerin (Nitrostat Tab) 0.4 mg UD PRN SL 06/15/17 17:45 07/15/17 17:44 Aspirin (Ecotrin Tab) 81 mg DAILY PO 06/16/17 09:00 07/16/17 08:59 06/16/17 14:03 81 MG Atorvastatin Calcium (Lipitor Tab) 80 mg DAILY PO 06/16/17 09:00 07/16/17 08:59 06/16/17 14:03 80 MG Cyanocobalamin (Vitamin B-12 Tab) 1,000 mcg DAILY PO 06/16/17 09:00 07/16/17 08:59 06/16/17 14:03 1,000 MCG Finasteride (Proscar Tab) 5 mg DAILY PO 06/16/17 09:00 07/16/17 08:59 06/16/17 14:03 5 MG Levothyroxine Sodium (Synthroid Tab) 75 mcg DAILYBB PO 06/16/17 06:00 07/16/17 05:59 06/16/17 05:17 75 MCG Lisinopril (Zestril Tab) 10 mg DAILY PO 06/16/17 09:00 07/16/17 08:59 06/16/17 14:02 10 MG Tamsulosin HCl (Flomax Cap) 0.4 mg DAILY PO 06/16/17 09:00 07/16/17 08:59 06/16/17 14:03 0.4 MG Cholecalciferol (Vitamin D Tab) 1,000 inter.unit DAILY PO 06/16/17 09:00 07/16/17 08:59 06/16/17 14:03 1,000 INTER.UNIT Insulin Aspart (novoLOG ASPART) SLIDING SCALE If C... ACHS SC 06/15/17 21:00 07/15/17 20:59 06/16/17 16:58 4 UNITS Glucose (Glucose 40% Gel) 15-30 GRAMS 15 GRAMS... UD PRN PO 06/15/17 19:15 07/15/17 19:14 Glucose (Glucose Chew Tab) 4-8 Tablets 4 Tabl... UD PRN PO 06/15/17 19:15 07/15/17 19:14 Dextrose (Dextrose 50% 50ML Syringe) 25-50ML OF 50% DW IV FOR... UD PRN IV 06/15/17 19:15 07/15/17 19:14 Glucagon (Glucagon Inj) 1 mg UD PRN SQ 06/15/17 19:15 07/15/17 19:14 Oxycodone/ Acetaminophen (Percocet 5-325mg Tab) 1 tab for pain scale 4-6 2 t... Q6H PRN PO 06/16/17 13:45 06/30/17 13:44 Metoprolol Succinate (Toprol Xl Tab) 25 mg QAM PO 06/17/17 09:00 07/17/17 08:59
[2017-06-16] MEDS: MAGNESIUM OXIDE 400 MG TAB PO SCH (21:02)
--- NOTE | 2017-06-16 21:44 | NUR ---
No change in assessment. Pt has been up to bathroom 3 times, gait steady, balance good, pace good. Denies pain. Has had no complaints.
--- NOTE | 2017-06-17 | NUR ---
A: Pt alert and oriented, VSS on room air. Paced on monitor. Pt denies pain or SOB at this time. OOB to BR with minimal assist. Anticipate d/c home when medically cleared. Call garay in reach. Will continue to monitor. Addendum: 06/17/17 at 0138 by Adam Ratliff RN Left chest incision open to air, no drainage noted. Left arm sling in place. Pt educated r/t limb restrictions.
--- NOTE | 2017-06-17 04:00 | NUR ---
A: Assessment and vitals as charted. No change in pt condition noted. No new needs verbalized. Monitoring to continue.
[2017-06-17 05:03] VITALS: BP 166/75; PULSE 76; TEMP 36.4; O2SAT 96
[2017-06-17] MEDS: LEVOTHYROXINE 75 MCG TAB PO SCH (06:08)
[2017-06-17 07:01] VITALS: BP_SYST 186; BP_SYST 188; BP_DIAS 77; BP_DIAS 81; PULSE 66; TEMP 36.5; O2SAT 97
[2017-06-17 07:19] LABS: HEMATOCRIT 32.8 % (42-52); HEMOGLOBIN 11.3 g/dL (14.0-18.0); MEAN CELL VOLUME 89.6 fL (80-100); MEAN CORPUSCULAR HEMOGLOBIN 30.9 pg (25-34); MEAN CORPUSCULAR HGB CONC 34.5 g/dl (32-36); MEAN PLATELET VOLUME 11.6 fL (7.4-10.4); PLATELET COUNT 185 K/uL (130-400); RED CELL DISTRIBUTION WIDTH CV 14.5 % (11.5-14.5); RED CELL DISTRIBUTION WIDTH SD 47.6 fL (36.4-46.3); WHITE BLOOD COUNT 8.52 K/uL (4.8-10.8)
--- NOTE | 2017-06-17 07:36 | DIAGNOSTIC IMAGING REPORT ---
CHEST 2 VIEWS ROUTINE CLINICAL HISTORY: EXACT TIME ORDERED Evaluate for pneumothorax and lead placement line position COMPARISON STUDY: 09/19/2012 FINDINGS: Placement of a permanent bipolar cardiac pacemaker. Leads in good position. No evidence pneumothorax. Potential minimal parenchymal infiltrate left base versus pre-existing chronic parenchymal fibrosis. Right lung is clear. IMPRESSION: 1. Placement of a permanent bipolar cardiac pacemaker in good position. 2. No evidence pneumothorax. 3. Pre-existing left basilar parenchymal fibrosis versus minimal/mild atelectatic/infiltrative change. The above report was generated using voice recognition software. It may contain grammatical, syntax or spelling errors. Electronically signed by: Walter Hsu M.D. 06/17/2017 7:34 AM Dictated Date/Time: 06/17/2017 7:32 AM
[2017-06-17] MEDS: MAGNESIUM OXIDE 400 MG TAB PO SCH (07:40)
[2017-06-17] MEDS: ATORVASTATIN 40 MG TAB PO SCH (07:40)
[2017-06-17] MEDS: ASPIRIN 81 MG ECTAB PO SCH (07:40)
[2017-06-17] MEDS: TAMSULOSIN HCL 0.4 MG CAP PO SCH (07:40)
[2017-06-17] MEDS: CYANOCOBALAMIN 500 MCG TAB (VIT B-12) PO SCH (07:41)
[2017-06-17] MEDS: LISINOPRIL 10 MG TAB PO SCH (07:41)
[2017-06-17] MEDS: FINASTERIDE 5 MG TAB PO SCH (07:41)
[2017-06-17] MEDS: CHOLECALCIFEROL 1000 INTER.UNIT TAB PO SCH (07:41)
[2017-06-17 07:45] LABS: CALCIUM 8.7 mg/dl (8.5-10.1); CREATININE 1.58 mg/dl (0.60-1.40); POTASSIUM 4.4 mmol/L (3.5-5.1)
[2017-06-17] MEDS: INSULIN ASPART 100 UNITS/ML 3 ML PEN SC SCH ×2 (07:50→11:51)
--- NOTE | 2017-06-17 08:00 | NUR ---
A/ID NOTE: PATIENT FULLY ASSESSED SEE EMR, VSS. PATIENT TOLERATING MEALS. . PATIENT UP INDEPENDENT IN ROOM. PATIENT DENIES PAIN THIS MORNING. INCISION SITE ON LEFT CHEST DRY AND INTACT. PATIENT HAS A SLING ON THE REMIND HIMSELF NOT TO USE HIS ARM. POSSIBLE DISCHARGE LATER TODAY.
[2017-06-17] MEDS ORDERED: METOPROLOL SUCC 25MG EXT REL TAB PO SCH (09:00)
[2017-06-17 09:22] VITALS: BP 169/74
--- NOTE | 2017-06-17 10:06 | Cardiology Follow-Up ---
Subjective General Date of Service: Jun 17, 2017. Chief Complaint: Complete heart block Pt evaluation today including: conversation w/ patient, physical exam, chart review, lab review, review of studies, review of inpatient medication list History of Present Illness Patient seen and examined Status post 06/16/2017 dual chamber pacemaker implantation without complications Patient feels considerably better this morning. Mild incisional (left subclavian) discomfort No chest pain, palpitations, or dyspnea. CXR and device interrogation OK this AM. June 16, 2017 TTE Interpretation Summary ([facility], Dr. Randolph): Aortic valve sclerosis mild, without significant aortic valvular stenosis. The left ventricle is normal in size. Left ventricular systolic function is normal. Ejection Fraction = 60-65%. The right ventricular systolic function is normal. The left atrial size is normal. Right atrial size is normal. No significacant valvular pathology Allergies Coded Allergies: Iodinated Contrast Media (Verified Adverse Reaction, Intermediate, SHAKING /HYPOTHERMIA/HYPOTENSION, 11/01/09) Aspirin (Verified Adverse Reaction, Mild, TINNITUS, 01/02/10) Bupivacaine (Verified Adverse Reaction, Unknown, ?EPIDURAL-SEIZURE, ) Fentanyl (Verified Adverse Reaction, Unknown, ?EPIDURAL-SEIZURE, 01/02/10) Social History Smoking Status: Former Smoker Hx Tobacco Use In Past Year?: No Hx Alcohol Use - Type And Amou: No Hx Substance Use - Type And Am: No Physical Exam Vital Signs Last Vital Signs Documentation Date Time Temp Pulse Resp B/P (MAP) Pulse Ox O2 Delivery O2 Flow Rate FiO2 06/17/17 09:22 169/74 (105) 06/17/17 08:00 Room Air 06/17/17 07:01 36.5 66 20 97 Physical Exam Constitutional: General Apperance: heathly-appearing Level of Distress: NAD Psychiatric: Mental Status: active & alert Orientation: to time, to place, to person Memory: recent memory normal, remote memory normal Head: normocephalic, atraumatic Eyes: Pupils: PERRLA Neck: pertinent finding (Normal JVP) Lungs: Respiratory effort: no dyspnea Auscultation: breath sounds normal, CTA except as noted, no wheezing, no rales/crackles, no rhonchi Cardiovascular: Heart Auscultation: RRR, normal S1, normal S2, no murmurs, no rubs Peripheral Pulses: Radial Pulse: normal on the left, normal on the right Dorsalis Pedis Pulse: normal on the left, normal on the right Abdomen: Bowel Sounds: normal Inspection & Palpation: soft, non-distended, no masses Extremities: no cyanosis, no edema, no clubbing Neurologic: Cranial Nerves: grossly intact Assessment and Plan Assessment and Plan Presentation with symptomatic complete heart block without an identified reversible cause, status post dual chamber pacemaker implantation on 06/16/2017 without complication. History of nonobstructive coronary artery disease by November 2008 diagnostic cardiac catheterization at [facility] RECOMMENDATIONS/PLAN: OK for discharge. Toprol XL added this admission. Please continue on discharge. Continue lisinopril Recommend outpatient Lexiscan nuclear stress testing to assess for ischemia. Incision check, device interrogation, and cardiology follow-up in [place] ( office aware, will contact patient) CARDIOLOGY ATTENDING ADDENDUM: The patient was seen and personally examined. Agree with Walter Saxena PA-C's findings and plans as documented above. Laboratory Results Last 24 Hours Test 06/16/17 11:55 06/16/17 16:01 06/16/17 20:55 06/17/17 06:46 Bedside Glucose 100 mg/dl 151 mg/dl 344 mg/dl 261 mg/dl Test 06/17/17 06:53 White Blood Count 8.52 K/uL Red Blood Count 3.66 M/uL Hemoglobin 11.3 g/dL Hematocrit 32.8 % Mean Corpuscular Volume 89.6 fL Mean Corpuscular Hemoglobin 30.9 pg Mean Corpuscular Hemoglobin Concent 34.5 g/dl RDW Standard Deviation 47.6 fL RDW Coefficient of Variation 14.5 % Platelet Count 185 K/uL Mean Platelet Volume 11.6 fL Sodium Level 135 mmol/L Potassium Level 4.4 mmol/L Chloride Level 105 mmol/L Carbon Dioxide Level 22 mmol/L Anion Gap 8.0 mmol/L Blood Urea Nitrogen 27 mg/dl Creatinine 1.58 mg/dl Est Creatinine Clear Calc Drug Dose 37.0 ml/min Estimated GFR () 46.2 Estimated GFR (Non- 39.9 BUN/Creatinine Ratio 17.2 Random Glucose 259 mg/dl Calcium Level 8.7 mg/dl Magnesium Level 2.0 mg/dl
[2017-06-17 11:01] VITALS: BP 158/85; PULSE 65; TEMP 36.6; O2SAT 97
--- NOTE | 2017-06-17 11:55 | NUR ---
A NOTE: PER MD ORDER PATIENT DISCHARGED TO HOME. DISCHARGE INSTRUCTIONS GIVEN TO PATIENT AT DISCHARGE. PHARMACY TECHNICIAN INSTRUCTOR REMOVED, CELL PHONE WITH PATIENT WE HE LEFT.
--- NOTE | 2017-06-17 12:00 | NUR ---
A NOTE: PATIENT RESTING IN BED. FAMILY AT BEDSIDE. NO NEW NEEDS AT THIS TIME.
[2017-06-17] MEDS ORDERED: TPRSR25 PO (14:02)
--- NOTE | 2017-06-17 14:12 | Discharge Instructions ---
Discharge Instructions Date of Service Jun 17, 2017. Admission Reason for Admission: Complete Heart Block - Pacemaker Placement Tom[place] Discharge Discharge Diagnosis / Problem: Complete heart block Discharge Goals Goal(s): Therapeutic intervention Activity Recommendations Activity Limitations: per Instructions/Follow-up section As per Cardiology post pacemaker instructions: do not lift elbow above the level of your shoulder. No heavy lifting with left arm . Instructions / Follow-Up Instructions / Follow-Up Please see Macarena Rodríguez PA-c on Wednesday, June 23, at 12:55PM (covering for Dr. Portillo) for hospital follow up Please see Cardiology as scheduled for outpatient stress test and for pacemaker check/follow up Current Hospital Diet Patient's current hospital diet: AHA Diet (Heart Healthy), Diabetes Type 2 Diet Discharge Diet Recommended Diet: AHA Diet (Heart Healthy), Diabetes Type 2 Diet Procedures Procedures Performed: dual chamber pacemaker rate responsive with peripheral venogram Pending Studies Studies pending at discharge: no Medical Emergencies . Who to Call and When: Medical Emergencies: If at any time you feel your situation is an emergency, please call 911 immediately. . Non-Emergent Contact Non-Emergency issues call your: Primary Care Provider, Medical Staff Specialist . . "Provider Documentation" section prepared by Rachell Crow. . VTE Core Measure Inpt VTE Proph given/why not?: SCD's
[2017-06-17 14:13] VITALS: BP 158/85; PULSE 65; TEMP 36.6; O2SAT 97
--- NOTE | 2017-06-17 14:40 | NUR ---
A NOTE: PER MD ORDER PATIENT DISCHARGED TO HOME. DISCHARGE INSTRUCTIONS GIVEN TO PATIENT AND PATIENT'S DAUGHTER. SILICA MIXER OPERATOR REMOVED BEFORE DISCHARGE PATIENT HAVE GLASSES WATCH CELL PHONE AND WALLET AT TIME OF DISCHARGE.
--- NOTE | 2017-06-19 13:23 | OPERATIVE REPORT ---
DATE OF OPERATION: 06/16/2017 PREOPERATIVE DIAGNOSIS: Complete heart block. POSTOPERATIVE DIAGNOSIS: Same. PROCEDURE: Dual chamber rate responsive permanent pacemaker under fluoroscopic guidance. SURGEON: Dr. Ирина Ramirez. BLEACH TESTER: None. ANESTHESIA: Monitored conscious sedation was administered under my supervision by Brennen Prabhakar; start time 12:30, end time 13:20, a total of 1 mg of Versed. He was pretreated for his CONTRAST ALLERGY of 50 mg of Benadryl, 50 mg of Zantac and 125 mg of Solu-Medrol. INTRAVENOUS CONTRAST: 10 mL. ANTIBIOTICS: Ancef 2 grams. INTRAVENOUS FLUIDS: 100 mL. BLOOD LOSS: Less than 10 mL. COMPLICATIONS: None. CONDITION: Stable. URINE OUTPUT: Not applicable. SPECIMENS: None. FINDINGS: See below. DRAINS: None. INDICATIONS: This is an 81-year-old gentleman who has a past medical history of nonobstructive coronary artery disease, hypertension, diabetes, hyperlipidemia. He had malignant melanoma status post right side lymph node dissection. He has hypothyroidism, anemia, BPH, rosacea, and vitamin D deficiency. DICTATION ENDS HERE I attest to the content of the Intraoperative Record and any orders documented therein. Any exception s are noted below.
--- NOTE | 2017-06-22 07:59 | OPERATIVE REPORT ---
DATE OF OPERATION: 06/16/2017 PREOPERATIVE DIAGNOSIS: Complete heart block. POSTOPERATIVE DIAGNOSIS: Same. PROCEDURE: Dual chamber rate responsive permanent pacemaker under fluoroscopic guidance along with a peripheral venogram. SURGEON: Dr. Ирина Ramirez. PROGRAM MANAGEMENT PROFESSIONAL: None. ANESTHESIA: Monitored conscious sedation administered under my supervision by Brennen Prabhakar; start time 12:30 and end time 13:20, a total of 1 mg Versed. IV CONTRAST: He got 10 mL but he was pretreated with 50 mg of Benadryl, 50 mg of Zantac, and 125 mg of Solu-Medrol. INTRAVENOUS FLUIDS: 100 mL. ANTIBIOTICS: Two grams of Ancef. BLOOD LOSS: Less than 10 mL. COMPLICATIONS: None. CONDITION: Stable. URINE OUTPUT: Not applicable. SPECIMENS: None. FINDINGS: See below. DRAINS: None. INDICATIONS: This is an 81-year-old gentleman who has a past medical history for nonobstructive coronary artery disease, hypertension, diabetes, hyperlipidemia, malignant melanoma where he had a lymph node dissection on the right side pectoral region, hypothyroidism, anemia, BPH, rosacea, and vitamin D deficiency. He presented to [facility] with shortness of breath, found to be in complete heart block. He was transferred to [facility] for a permanent pacemaker implantation. CONSENT: Consent was obtained prior to the patient going into the electrophysiology lab. The patient was informed of risks, benefits and alternatives to the procedure. Risks include but not limited to sudden cardiac ; cardiac arrhythmias; cerebrovascular accident; myocardial infarction; injury to the blood vessels, chamber of the heart, lungs; bleeding; and infection. The patient understood these risks and agreed to go ahead with the procedure as planned. Informed consent was obtained. DESCRIPTION OF THE PROCEDURE: The patient was brought into the electrophysiology lab in a fasting state. He was connected to continuous cardiac monitoring. A time-out was performed to ensure the patient's identity and procedure correctly. The patient was prepped and draped over the left infraclavicular space in a normal surgical standard fashion. Monitored conscious sedation was given throughout the procedure for the patient's comfort level. BMI supervision and universal precautions were maintained throughout the procedure. A 10 mL of 1% lidocaine-bupivacaine mixture were given in the left deltopectoral groove, incision was made in the left deltopectoral groove. Blunt dissection was performed to try to identify the cephalic vein; however, none could be identified. The peripheral venogram was performed to identify the axillary vein. Axillary venous access was obtained through a needle stick without any problem. A guidewire was inserted without any resistance. An 8-Polish sheath was inserted over the guidewire without any resistance. The dilator was removed and a second guidewire was inserted through the sheath to obtain new venous access. The ex-dilator was removed. The sheath was removed and dilator reinserted over it and the 8-Polish sheath was inserted over the 1 guidewire. The guidewire and dilator were removed and the right ventricle pacing wire was then advanced into the right ventricle and positioned into the right ventricular apex under fluoroscopic guidance. There was adequate pacing and sensing thresholds and no diaphragmatic stimulation with high output pacing. The 8-Polish sheath was peeled away and the lead was fixated to the pectoralis muscle using 0 silk suture. A second 8-Polish sheath was advanced over the retained guidewire without any resistance. The guidewire and dilator were removed. The right atrium pacing lead was then advanced into the right atrium and positioned into the right atrial appendage under fluoroscopic guidance. There was adequate pacing and sensing thresholds and no diaphragmatic stimulation with high output pacing. The 8-Polish sheath was peeled away and the lead was fixated to the pectoralis muscle using 0 silk suture. An additional 5 mL of 1% lidocaine-bupivacaine mixture were given within the pectoralis fascia and then using blunt dissection over the pectoralis muscle within the pectoralis fascia, a pacemaker pocket was created. The pocket was flushed with copious amounts of bacitracin saline wash and inspected for hemostasis and the pulse generator was then attached to the leads making sure that the pins were in appropriate position passed the set screws and the set screws were all tightened. The pulse generator was then placed in the pocket, making sure that the leads were lying flat beneath the device. A stay stitch using 0 silk suture was used to secure the device to the pectoralis muscle. The incision was then closed in a 3-layer fashion using a 2-0 Vicryl interrupted suture followed by a 3-0 Vicryl interrupted suture followed by a 4-0 Monocryl running stitch, and Dermabond was applied. EQUIPMENT: 1. Pulse generator is a Mr Po Mediadonna Nelson [id number], serial #[id number]. 2. Right atrial lead Medtronic 5076-52 cm, serial #[id number]. 3. Right ventricular lead Medtronic 5076-58 cm, serial #[id number]. INTRAOPERATIVE TESTING: Right atrial lead: P-wave 0.8 millivolts, impedance 551 ohms, threshold 0.8 volts at 1.6 milliamps. Right ventricular lead: R-wave 3 millivolts, impedance 666 ohms, threshold 0.3 volts at 0.4 milliamps. FINAL MEASUREMENTS THROUGH THE DEVICE: Right atrial lead: P-wave 0.3 millivolts, impedance 399 ohms, threshold 0.75 volts at 0.4 milliseconds. Right ventricular lead: R-wave is 5.3 millivolts, impedance 494 ohms, threshold 0.5 volt at 0.4 milliseconds. FINAL PARAMETERS: DDDR 60/130. Right atrial amplitude 3.5 volts, pulse width 0.4 milliseconds, sensitivity 0.3 millivolts. Right ventricular amplitude 3.5 volts, pulse width 0.4 milliseconds, sensitivity 1.2 millivolts. IMPRESSION: Successful implantation of a dual chamber rate responsive permanent pacemaker under fluoroscopic guidance along with peripheral venogram secondary to complete heart block. PLAN: Monitor the patient overnight, 12-lead ECG, chest x-ray. He is not allowed to lift his left elbow over the left shoulder for 1 month. He cannot lift more than 10 pounds with the left arm for 2 weeks. He can shower tomorrow, let water run over the incision, do not scrub it. He will follow up in our device clinic in [place] for device and wound check in 1 week, and we will leave it up to the discussion of the primary cardiology to start beta-suzy. I attest to the content of the Intraoperative Record and any orders documented therein. Any exception s are noted below.
--- NOTE | 2017-07-01 20:36 | Discharge Summary ---
Discharge Summary Date of Service Jul 01, 2017. Discharge Summary Admission Date: Jun 15, 2017 at 17:24 Discharge Date: Jun 17, 2017 Discharge Disposition: Home Principal Diagnosis: Complete heart block Procedures: Pacemaker placement Medication Reconciliation New Medications: Metoprolol Succinate (Metoprolol Succinate ER) 25 Mg Tabcr 25 MG PO QAM, #30 TABS Continued Medications: Aspirin (Aspirin Ec) 81 Mg Tab 81 MG PO DAILY Atorvastatin (Lipitor) 80 Mg Tab 80 MG PO DAILY, TAB Cholecalciferol (Vitamin D3) 2,000 Unit Cap 1 CAP PO DAILY for 30 Days, #30 CAP 3 Refills Cyanocobalamin (Vitamin B-12) 1,000 Mcg Tab 1000 MCG PO DAILY, TAB Desonide 0.05% (Desowen 0.05%) 60 Gm Cr 1 APPLN TOP BID PRN for rash for 14 Days, #60 GM Finasteride (Proscar) 5 Mg Tab 1 TAB PO DAILY for 90 Days, #90 TAB 1 Refill Levothyroxine Sodium (Levothyroxine Sodium) 75 Mcg Tab 1 TAB PO DAILY for 30 Days, #30 TAB 5 Refills Lisinopril (Prinivil) 10 Mg Tab 10 MG PO, TAB Metformin Hcl (Glucophage) 1,000 Mg Tab 1000 MG PO BID, TAB Tamsulosin Hcl (Flomax) 0.4 Mg Cap 1 CAP PO DAILY for 30 Days, #30 CAP 5 Refills Triamcinolone Acet (Triamcinolone Acetonide) 45 Appln/15 Gm Cr 1 APPLN TOP BID for 30 Days, #30 GM Admission Information HPI (per Admitting provider): Pt is 81 y/o M with PMH DM II, HTN, dyslipidemia, melanoma with yelena to lymph nodes to right upper chest s/p chemo in remission past 6 years presented for direct admission from [facility] ER with complete heart block. Planned pacemaker placement tomorrow by Dr Ramirez. Pt reports past 2-3 days with aching/dull anterior chest pain with associated SOB, worse with walking. Denies any current CP or SOB. Reports hx edema feet bilaterally at end of day and resolves by morning for "awhile", denies any increased LE edema. In [facility] EKG: rate 45 with complete heart block, RBBB. Pt given 324mg ASA. CXR: mild increased interstitial markings lung arias without consolidation or effusion. WBC: 8, ProBNP: 4457, TSH: 2.77. Negative influenza swab. Denies fever/chills, diaphoresis, N/V/D/C, DORMAN, dizziness, syncope, vision changes, neck pain, orthopnea, palpitations, hemoptysis, cough, sore throat, choking, otalgia, rhinorrhea, abdominal pain, paresthesias, extremity weakness, rashes, urinary symptoms. Physical Exam (per Admitting): General Appearance: WD/WN, no apparent distress Head: normocephalic, atraumatic Eyes: normal inspection, PERRL, EOMI, sclerae normal ENT: hearing grossly normal, pharynx normal, + pertinent finding (moist mucous membranes) Neck: supple, no JVD, trachea midline Respiratory/Chest: chest non-tender, no respiratory distress, no accessory muscle use, + pertinent finding (mild rales noted bilateral bases) Cardiovascular: normal peripheral pulses, + bradycardia (+murmur) Abdomen/GI: normal bowel sounds, non tender, soft Extremities/Musculoskelatal: no calf tenderness, normal capillary refill, no pedal edema, normal range of motion, non-tender Neurologic/Psych: alert, normal mood/affect, oriented x 3 Skin: normal color, warm/dry Hospital Course CP/SOB SECONDARY TO COMPLETE HEART BLOCK: s/p dual chamber pacemaker POD#1 -presented with CP, SOB for 2 days prior to evaluation in [facility] -Admission EKG: bradycardia, rate 49, complete heart block -CXR done at [facility]: no infiltrate or consolidation. -serial cardiac enzymes negative -Cardiology & EP cardio consulted, appreciate intervention -TTE report: * -- Conclusions -- * Aortic valve sclerosis mild, without significant aortic valvular stenosis. * The left ventricle is normal in size. * Left ventricular systolic function is normal. * Ejection Fraction = 60-65%. * The right ventricular systolic function is normal. * The left atrial size is normal. * Right atrial size is normal. * No significacant valvular pathology. -remains in paced rhythm with no new abnormalities on EKG or tele monitor HTN: -was hypertensive, now improving -monitor -continue lisinopril -metoprolol added per Cardio HYPOMAGNESEMIA: -1.5-->1.6 -replete and recheck DM TYPE II: -HbA1C from 04/23/17 was 6.6% -hold metformin while hospitalized -NovoLog sliding scale per protocol DYSLIPIDEMIA: -recent lipids from 04/23/17 Total: 117, HDL: 39, LDL: 53, Triglycerides: 123 -continue atorvastatin HYPOTHYROIDISM: -TSH: 2.77 at [facility] -continue levothyroxine BPH: -continue flomax ANEMIA: -has chronic hx of pernicious anemia -Hgb: 11.2-->10.4-->11.3 -last baseline: 12.3 -no active bleeding noted PHYSICAL EXAM: GENERAL: Patient is in no acute distress. HEENT: No acute trauma, normocephalic, mucous membranes moist, no nasal congestion, no scleral icterus. NECK: No stridor, trachea is midline. LUNGS: Clear to auscultation bilaterally, no wheeze, no rhonchi, breath sounds equal. HEART: Without murmurs gallops or rubs, regular rate and rhythm. Left axillary incision clean, dry, intact with mild bruising ABDOMEN: Soft, nontender, bowel sounds positive EXTREMITIES: No cyanosis or edema NEUROLOGIC: Oriented x 3, no acute motor or sensory deficits, no focal weakness. SKIN: No rash, no jaundice, no diaphoresis. Total time spent on discharge = 37 This includes examination of the patient, discharge planning, medication reconciliation, and communication with other providers. Discharge Instructions see patient instructions
== END 2017-06-17 14:40 | disposition home or self-care (01) | DRG 244 ==
LOC: C.2T 17:24
PROVIDERS: ADMIT Internal Medicine; ATTEND Internal Medicine
PROC: 02HK3JZ Insertion of Pacemaker Lead into Right Ventricle, Percutaneous Approach (ICD-10-PCS; principal; 2017-06-16 12:07)
PROC: 02H63JZ Insertion of Pacemaker Lead into Right Atrium, Percutaneous Approach (ICD-10-PCS; principal; 2017-06-16 12:07)
PROC: 0JH606Z Insertion of Pacemaker, Dual Chamber into Chest Subcutaneous Tissue and Fascia, Open Approach (ICD-10-PCS; principal; 2017-06-16 12:07)
DX: I44.2 Atrioventricular block, complete (principal); I45.10 Unspecified right bundle-branch block; E83.42 Hypomagnesemia; I25.10 Atherosclerotic heart disease of native coronary artery without angina pectoris; I10 Essential (primary) hypertension; E11.42 Type 2 diabetes mellitus with diabetic polyneuropathy; E78.5 Hyperlipidemia, unspecified; E03.9 Hypothyroidism, unspecified; N40.0 Benign prostatic hyperplasia without lower urinary tract symptoms; D51.0 Vitamin B12 deficiency anemia due to intrinsic factor deficiency; E55.9 Vitamin D deficiency, unspecified; Z96.652 Presence of left artificial knee joint; Z87.891 Personal history of nicotine dependence; Z79.82 Long term (current) use of aspirin; Z79.84 Long term (current) use of oral hypoglycemic drugs; Z79.899 Other long term (current) drug therapy